=== PATIENT | female | born 1965 | race Caucasian/White ===

== ENCOUNTER 2016-07-18 10:34 | Emergency (ER) | payer OTHER ==
[2016-07-18 10:35] VITALS: BMI 41.5
[2016-07-18 10:52] VITALS: BP 110/72; PULSE 76; RESP 18; TEMP 98.2; O2SAT 98
--- NOTE | 2016-07-18 11:27 | C.PDOC ---
History Of Present Illness 51 yr old female with PMHx of multiple sclerosis, presents to the ER for a rash on top of her both feet for the past several days (also on right hand at the base of thumb). Patient states its occasionally itchy but currently it is not. She denies fever, injuries, new allergens (lotions, meds, shoes, detergents). Time Seen by Provider: 07/18/16 10:48 Chief Complaint (Nursing): Abnormal Skin Integrity History Per: Patient History/Exam Limitations: no limitations Onset/Duration Of Symptoms: Days (Several) Quality Of Symptoms: Itching Severity: Mild Past Medical History Reviewed: Historical Data, Nursing Documentation, Vital Signs Vital Signs: Last Vital Signs Temp 98.2 F 07/18/16 10:42 Pulse 76 07/18/16 10:42 Resp 18 07/18/16 10:42 BP 110/72 07/18/16 10:42 Pulse Ox 98 07/18/16 12:09 - Medical History PMH: Multiple Sclerosis (last episode 7-8 years) Family History: States: No Known Family Hx - Social History Hx Tobacco Use: No Hx Alcohol Use: No Hx Substance Use: No - Immunization History Hx Tetanus Toxoid Vaccination: No Hx Influenza Vaccination: No Hx Pneumococcal Vaccination: No Review Of Systems Except As Marked, All Systems Reviewed And Found Negative. Constitutional: Negative for: Fever, Chills Gastrointestinal: Negative for: Nausea Musculoskeletal: Negative for: Foot Pain Skin: Positive for: Rash (On top of both feet) Neurological: Negative for: Weakness, Numbness Physical Exam - Physical Exam Appears: Well, Non-toxic, No Acute Distress Skin: Normal Color, Warm, Dry Oral Mucosa: Moist Cardiovascular: Rhythm Regular Respiratory: Normal Breath Sounds, No Rales, No Rhonchi, No Wheezing Extremity: Normal ROM, No Calf Tenderness, Capillary Refill (< 2 sec all digits ), No Swelling, Other ((+) Multiple erythematous scaly papules on tops of B/L feet andone on the right thenar eminence. Blanching. Non vesicular. Spares the palms/soles. ) Pulses: Left Dorsalis Pedis: Normal, Right Dorsalis Pedis: Normal Neurological/Psych: Oriented x3 Gait: Steady ED Course And Treatment O2 Sat by Pulse Oximetry: 98 (RA) Pulse Ox Interpretation: Normal Progress Note: Patient given Rx for triamcinolone cream. She was instructed to follow up with her PMD in 1-2 days, and understands she should return to ED if symptoms worsen. Disposition Counseled Patient/Family Regarding: Diagnosis, Need For Followup, Rx Given - Disposition Referrals: Ender Pack MD [Medical Doctor] - Disposition: HOME/ ROUTINE Disposition Time: 11:25 Condition: STABLE Additional Instructions: FOLLOW UP WITH YOUR DOCTOR IN 1-2 DAYS USE MEDICATIONS DIRECTED RETURN TO ER IF SYMPTOMS WORSEN Prescriptions: Triamcinolone 0.1% [Triamcinolone Acetonide] 1 appl TP BID #1 tube Instructions: Dermatitis (ED), Eczema in Children (ED) Print Language: TONGAN - POA Present On Arrival: None - Clinical Impression Clinical Impression: Eczema - Scribe Statement The provider has reviewed the documentation as recorded by the Marlena Grove Provider Attestation: All medical record entries made by the Marlena were at my direction and personally dictated by me. I have reviewed the chart and agree that the record accurately reflects my personal performance of the history, physical exam, medical decision making, and the department course for this patient. I have also personally directed, reviewed, and agree with the discharge instructions and disposition.
== END 2016-07-18 11:39 | disposition home or self-care (01) ==
LOC: C.ER 10:34
DX: L30.9 Dermatitis, unspecified (principal); G35 Multiple sclerosis

== ENCOUNTER 2017-01-27 13:06 | Emergency (ER) | payer OTHER ==
[2017-01-27 13:07] VITALS: BMI 41.5
[2017-01-27 13:16] VITALS: RESP 18; TEMP 97.3
[2017-01-27] MEDS ORDERED: Lidocaine 5% Patch TD STA (13:31)
[2017-01-27] MEDS ORDERED: Lidocaine 5% Patch TD ONE (13:39)
--- NOTE | 2017-01-27 14:26 | C.PDOC ---
Time Seen by Provider: 01/27/17 13:21 Chief Complaint (Nursing): Upper Extremity Problem/Injury Past Medical History Vital Signs: Last Vital Signs Temp 97.3 F L 01/27/17 13:16 Pulse 75 01/27/17 13:16 Resp 18 01/27/17 13:16 BP 114/75 01/27/17 13:16 Pulse Ox 98 01/27/17 13:16 - Medical History PMH: Multiple Sclerosis (last episode 7-8 years) Denies: Chronic Kidney Disease Family History: States: Unknown Family Hx - Social History Hx Tobacco Use: No Hx Alcohol Use: No Hx Substance Use: No - Immunization History Hx Tetanus Toxoid Vaccination: No Hx Influenza Vaccination: No Hx Pneumococcal Vaccination: No ED Course And Treatment O2 Sat by Pulse Oximetry: 98 Disposition Counseled Patient/Family Regarding: Diagnosis, Need For Followup, Rx Given - Disposition Disposition: HOME/ ROUTINE Disposition Time: 14:24 Condition: STABLE Additional Instructions: Follow up with your regular doctor. Prescriptions: Ibuprofen [Motrin] 600 mg PO TID #15 tab Lidocaine 5% [Lidoderm] 1 ea TD DAILY #1 patch Instructions: Musculoskeletal Pain (ED) Forms: [facility] (Albanian), General Discharge Instructions - Clinical Impression Clinical Impression: Musculoskeletal pain of extremity
[2017-01-27 14:36] VITALS: BP 119/65; PULSE 71; O2SAT 99
== END 2017-01-27 14:46 | disposition home or self-care (01) ==
LOC: C.ER 13:06
DX: M79.601 Pain in right arm (principal); G35 Multiple sclerosis

== ENCOUNTER 2017-04-04 11:06 | Emergency (ER) | payer OTHER ==
[2017-04-04 11:07] VITALS: BMI 41.5
[2017-04-04 11:15] VITALS: RESP 16; TEMP 97.2; O2SAT 98
--- NOTE | 2017-04-04 11:46 | C.PDOC ---
Time Seen by Provider: 04/04/17 11:27 Chief Complaint (Nursing): Dizziness/Lightheaded Past Medical History Vital Signs: Last Vital Signs Temp 97.2 F L 04/04/17 11:11 Pulse 68 04/04/17 11:11 Resp 16 04/04/17 11:11 BP 111/73 04/04/17 11:11 Pulse Ox 98 04/04/17 11:11 - Medical History PMH: Multiple Sclerosis Denies: Chronic Kidney Disease Family History: States: Unknown Family Hx - Social History Hx Tobacco Use: No Hx Alcohol Use: No Hx Substance Use: No - Immunization History Hx Tetanus Toxoid Vaccination: No Hx Influenza Vaccination: No Hx Pneumococcal Vaccination: No ED Course And Treatment O2 Sat by Pulse Oximetry: 98 Disposition - Disposition
[2017-04-04] MEDS ORDERED: Lactated Ringer's 1,000 ML IV ONE (11:57)
[2017-04-04 12:29] LABS: BASO # 0.1 K/uL (0.0-0.2); BASO % 0.7 % (0.0-2.0); EOS # 0.1 K/uL (0.0-0.7); EOS % 1.1 % (0.0-4.0); HEMATOCRIT 35.9 % (34.0-47.0); LYMPH # 1.4 K/uL (1.0-4.3); MEAN CELL VOLUME 88.9 fL (81.0-99.0); MEAN CORPUSCULAR HEMOGLOBIN 30.8 pg (27.0-31.0); MEAN CORPUSCULAR HGB CONC 34.7 g/dL (33.0-37.0); MEAN PLATELET VOLUME 8.9 fL (7.2-11.7); MONO # 0.7 K/uL (0.0-0.8); MONO % 8.2 % (0.0-10.0); RED CELL DISTRIBUTION WIDTH 14.3 % (11.5-14.5); WHITE BLOOD COUNT 9.1 K/uL (4.8-10.8)
[2017-04-04 12:33] LABS: URINE BACTERIA RARE (<OCC); URINE BILIRUBIN NEGATIVE (NEGATIVE); URINE BLOOD 1+ (NEGATIVE); URINE COLOR Straw (YELLOW); URINE GLUCOSE (UA) NORMAL (Normal); URINE KETONE NEGATIVE (NEGATIVE); URINE LEUKOCYTE ESTERASE TRACE Leu/uL (Negative); URINE PROTEIN NEGATIVE (NEGATIVE); URINE UROBILINOGEN NORMAL mg/dL (0.2-1.0); WBC URINE 2 /hpf (0-5)
[2017-04-04 12:35] LABS: ALB/GLOB RATIO 1.2 (1.0-2.1); ALKALINE PHOSPHATASE 57 U/L (38-126); ALT/SGPT 27 U/L (9-52); AST/SGOT 18 U/L (14-36); BILIRUBIN,TOTAL 0.7 mg/dL (0.2-1.3); BLOOD UREA NITROGEN 9 mg/dL (7-17); CALCIUM 8.5 mg/dl (8.6-10.4); CARBON DIOXIDE 25 mmol/L (22-30); CHLORIDE 100 mmol/L (98-107); GFR AFRICAN-AMERICAN > 60; GLUCOSE,RANDOM 95 mg/dL (65-105); POTASSIUM 3.7 mmol/L (3.6-5.2); SODIUM 133 mmol/L (132-148); TOTAL PROTEIN 7.1 g/dL (6.3-8.3)
[2017-04-04] MEDS ORDERED: Lactated Ringer's 1,000 ML ONE (12:36)
[2017-04-04 12:42] LABS: RBC URINE 7 /hpf (0-3)
--- NOTE | 2017-04-04 12:59 | C.PDOC ---
History Of Present Illness 52 yr old female with PMhx of MS, presents to the ER for evaluation of intermittent "dizzy spells" since morning. Patient states , "when I started walking and felt spinning sensation, sat down and the sypmtoms resolved". Patient reports of similar symptoms in the past, which resolved with time. AT present time, pt denies any active complaints. Otherwise, pt denies head injury , fever, chills, severe headache, visual changes, focal deficits, neck pain, chest pain, SOB, dyspnea, diaphoresis, palpitation, abd. pain, nausea, vomiting , diarrhea, back pain. Ambulate to ED for evaluation, not in any apparent distress. Time Seen by Provider: 04/04/17 11:27 Chief Complaint (Nursing): Dizziness/Lightheaded History Per: Patient History/Exam Limitations: no limitations Onset/Duration Of Symptoms: Sudden Onset (Since morning) Past Medical History Reviewed: Historical Data, Nursing Documentation, Vital Signs Vital Signs: Last Vital Signs Temp 97.2 F L 04/04/17 11:11 Pulse 56 L 04/04/17 13:41 Resp 16 04/04/17 13:41 BP 141/82 04/04/17 13:41 Pulse Ox 98 04/04/17 13:41 - Medical History PMH: Multiple Sclerosis Family History: States: No Known Family Hx - Social History Hx Tobacco Use: No Hx Alcohol Use: No Hx Substance Use: No - Immunization History Hx Tetanus Toxoid Vaccination: No Hx Influenza Vaccination: No Hx Pneumococcal Vaccination: No Review Of Systems Except As Marked, All Systems Reviewed And Found Negative. Constitutional: Negative for: Fever Eyes: Negative for: Vision Change Cardiovascular: Negative for: Chest Pain Respiratory: Negative for: Shortness of Breath Gastrointestinal: Negative for: Nausea, Vomiting Neurological: Positive for: Dizziness. Negative for: Weakness, Numbness Physical Exam - Physical Exam Appears: Non-toxic, No Acute Distress Skin: Warm, Dry, No Rash Head: Normacephalic Eye(s): bilateral: PERRL Ear(s): Bilateral: Normal Nose: No Flaring, No Discharge Oral Mucosa: Moist, No Drooling Tongue: Normal Appearing Lips: Normal Appearing Throat: No Erythema, No Drooling Neck: Trachea Midline, Supple Cardiovascular: Rhythm Regular, No Murmur, No JVD, Other ((-) carotid bruits B/L ) Respiratory: No Decreased Breath Sounds, No Accessory Muscle Use, No Rales, No Rhonchi, No Stridor, No Wheezing Gastrointestinal/Abdominal: Soft, No Tenderness, No Distention, No Guarding Back: No CVA Tenderness Extremity: Normal ROM, No Pedal Edema, No Deformity, No Swelling Neurological/Psych: Oriented x3, Normal Speech, Cerebellar Signs, Normal Motor, Normal Sensation, Normal Reflexes ED Course And Treatment - Laboratory Results Result Diagrams: 04/04/17 12:18 04/04/17 12:18 Lab Interpretation: Normal ECG: Interpreted By Me, Viewed By Me ECG Rhythm: Sinus Bradycardia ECG Interpretation: No Changes From Prior (04/26/15) Interpretation Of ECG: Sinus mis@56/min, NAD, no acute T wave or ST-T changes. Rate From EC (BPM) O2 Sat by Pulse Oximetry: 98 (RA) Pulse Ox Interpretation: Normal Progress Note: On re-eval, pt is afberile, hemodynamicaly stable. NOn-toxic. AMbulatoyr in ED with stable gait. After ED tx, pt reports asymptomatic. PulsEOx 98% RA. ENT: No acute findings. Neck: SUpple, (-) JVD, (-) carotid bruits B/L. Lungs: CTA B/L, BS equal B/L. CVS: (+)S1S2, reg. ABd: Benign, (- ) guarding, (-) rebound, (-) localized tenderness. back: (-) CVA tenderness. Blood work review and appears normal. EKG- no acute abnormalities noted, read by ED attending. PT has clinical findings c/w dizziness, resolved. Hx of vertigo. Pt advised and ref. to F/u with PMD, Neuro In 2-3 days for re-eavl. return to ED if any worsening or new changes. Medical Decision Making Medical Decision Making: PLAN: * EKG * Troponin * CBC * CMP * HCG * Urinalysis * Lactated Ringer IV Disposition Counseled Patient/Family Regarding: Studies Performed, Diagnosis, Need For Followup - Disposition Referrals: Ender Pack MD [Medical Doctor] - Dwight Albarado MD [Staff Provider] - Disposition: HOME/ ROUTINE Disposition Time: 13:31 Condition: STABLE Additional Instructions: Follow up with PMD, Neurology in 2-3 days for re-evaluation. Return to ED if any worsening or new changes. Instructions: Dizziness (ED) Forms: [facility] (Guamanian) - Clinical Impression Clinical Impression: Dizziness - PA / BEACH ATTENDANT / Resident Statement MD/DO has reviewed & agrees with the documentation as recorded. - Scribe Statement The provider has reviewed the documentation as recorded by the Scribe Jessica Grove All medical record entries made by the Scribe were at my direction and personally dictated by me. I have reviewed the chart and agree that the record accurately reflects my personal performance of the history, physical exam, medical decision making, and the department course for this patient. I have also personally directed, reviewed, and agree with the discharge instructions and disposition.
[2017-04-04 13:41] VITALS: BP 141/82; PULSE 56
--- NOTE | 2017-04-07 12:11 | CARD ---
APPROVED REPORT EKG Measurement Heart [id number] <Conclusion> Sinus bradycardia Otherwise normal ECG
== END 2017-04-04 14:36 | disposition home or self-care (01) ==
LOC: C.ER 11:06
DX: R42 Dizziness and giddiness (principal); G35 Multiple sclerosis
CPT/HCPCS: 80053; 81001; 82948; 84484; 84703; 85025; 85610; 85730; 93005; 99285; J7120

== ENCOUNTER 2017-04-26 14:13 | Emergency (ER) | payer OTHER ==
[2017-04-26 14:14] VITALS: BMI 41.5
[2017-04-26 14:18] VITALS: BP 123/79; PULSE 77; RESP 20; TEMP 98.1; O2SAT 99
[2017-04-26 15:51] LABS: HCG,QUALITATIVE URINE NEGATIVE (NEGATIVE)
[2017-04-26 15:54] LABS: SQUAMOUS EPITHIAL 1 /hpf (0-5); URINE BACTERIA RARE (<OCC)
[2017-04-26 16:00] LABS: URINE BILIRUBIN NEGATIVE (NEGATIVE); URINE CLARITY CLEAR (Clear); URINE COLOR YELLOW (YELLOW)
[2017-04-26 16:01] LABS: URINE BLOOD NEGATIVE (NEGATIVE); URINE GLUCOSE (UA) NORMAL (Normal); URINE NITRATE NEGATIVE (NEGATIVE); URINE PROTEIN NEGATIVE (NEGATIVE); URINE UROBILINOGEN 0.2 mg/dL (0.2-1.0)
--- NOTE | 2017-04-26 16:18 | C.PDOC ---
History Of Present Illness 52-year-old female, presents to the emergency department with complaints of light menses this week. Patient states she was supposed to start her period a few days ago, but she is spotting and it is not as heavy as usual. Pt states she is usually regular though occassional has menses twice in one month. No h/o cysts or fibroids. Patient denies dysuria/frequency, pelvic pain, abdominal pain or any other associated symptoms. No other complaints at this time. Patient is wondering whether these are "age changes". Time Seen by Provider: 04/26/17 14:30 Chief Complaint (Nursing): Female Genitourinary History Per: Patient History/Exam Limitations: no limitations Onset/Duration Of Symptoms: Days Current Symptoms Are (Timing): Still Present Past Medical History Reviewed: Historical Data, Nursing Documentation, Vital Signs Vital Signs: Last Vital Signs Temp 98.1 F 04/26/17 14:15 Pulse 77 04/26/17 14:15 Resp 20 04/26/17 16:29 BP 123/79 04/26/17 14:15 Pulse Ox 99 04/26/17 16:42 - Medical History PMH: Multiple Sclerosis Family History: States: No Known Family Hx - Social History Hx Tobacco Use: No Hx Alcohol Use: No Hx Substance Use: No - Immunization History Hx Tetanus Toxoid Vaccination: No Hx Influenza Vaccination: No Hx Pneumococcal Vaccination: No Review Of Systems Except As Marked, All Systems Reviewed And Found Negative. Constitutional: Negative for: Fever Respiratory: Negative for: Shortness of Breath Gastrointestinal: Negative for: Vomiting Genitourinary: Positive for: Vaginal Bleeding. Negative for: Pelvic Pain Physical Exam - Physical Exam Appears: Non-toxic, No Acute Distress Skin: Warm, Dry, No Rash Head: Atraumatic, Normacephalic Eye(s): bilateral: Normal Inspection, EOMI Nose: Normal Oral Mucosa: Moist Lips: Normal Appearing Neck: Normal ROM, Supple Chest: Symmetrical Cardiovascular: Rhythm Regular Respiratory: Normal Breath Sounds, No Accessory Muscle Use Gastrointestinal/Abdominal: Soft, No Tenderness Extremity: Normal ROM Neurological/Psych: Oriented x3, Normal Speech ED Course And Treatment O2 Sat by Pulse Oximetry: 99 Progress Note: UA/Preg ordered and reviewed. Patient advised to f/u with OBGYN in 1-2 days. Disposition - Disposition Disposition: HOME/ ROUTINE Disposition Time: 16:17 Condition: STABLE Additional Instructions: Follow up with your [employer]ER[employer] DRIVER in 1-2 days. Instructions: Menopause (ED) Forms: [employer] [facility] [employer] [facility] (Yemeni) - Clinical Impression Clinical Impression: Irregular menstruation - Scribe Statement The provider has reviewed the documentation as recorded by the Scribe (Maurilio Moya) All medical record entries made by the Scribe were at my direction and personally dictated by me. I have reviewed the chart and agree that the record accurately reflects my personal performance of the history, physical exam, medical decision making, and the department course for this patient. I have also personally directed, reviewed, and agree with the discharge instructions and disposition.
[2017-04-26 17:31] LABS: URINE LEUKOCYTE ESTERASE NEGATIVE Leu/uL (Negative)
== END 2017-04-26 16:29 | disposition home or self-care (01) ==
LOC: C.ER 14:13
DX: N92.6 Irregular menstruation, unspecified (principal); G35 Multiple sclerosis

== ENCOUNTER 2017-06-13 10:06 | Emergency (ER) | payer OTHER ==
[2017-06-13 10:12] VITALS: BMI 33.6
[2017-06-13] MEDS ORDERED: Naproxen 550 mg Tab PO STA (10:35)
[2017-06-13] MEDS ORDERED: Naproxen 550 mg Tab PO ONE (10:53)
--- NOTE | 2017-06-13 10:55 | RAD ---
PROCEDURE: Right Knee Radiographs. HISTORY: Pain COMPARISON: None. FINDINGS: BONES: No acute fracture. JOINTS: Unremarkable. JOINT EFFUSION: None. OTHER FINDINGS: None. IMPRESSION: No demonstrated fracture or dislocation.
--- NOTE | 2017-06-13 11:22 | C.PDOC ---
History Of Present Illness Pt c/o right medial anterior knee pain. Denies injury but states that she has been exercising a lot lately. Time Seen by Provider: 06/13/17 10:27 Chief Complaint (Nursing): Lower Extremity Problem/Injury History Per: Patient Onset/Duration Of Symptoms: Days, Gradual Current Symptoms Are (Timing): Worse Severity: Moderate Additional History Per: Prior Records Past Medical History Reviewed: Historical Data, Nursing Documentation, Vital Signs Vital Signs: Last Vital Signs Temp 97.5 F L 06/13/17 10:14 Pulse 68 06/13/17 10:14 Resp 18 06/13/17 10:14 BP 121/74 06/13/17 10:14 Pulse Ox 100 06/13/17 10:14 - Medical History PMH: Multiple Sclerosis Family History: States: Unknown Family Hx - Social History Hx Tobacco Use: No Hx Alcohol Use: No Hx Substance Use: No - Immunization History Hx Tetanus Toxoid Vaccination: No Hx Influenza Vaccination: No Hx Pneumococcal Vaccination: No Review Of Systems Except As Marked, All Systems Reviewed And Found Negative. Constitutional: Negative for: Fever, Weakness Cardiovascular: Negative for: Chest Pain Respiratory: Negative for: Shortness of Breath Gastrointestinal: Negative for: Vomiting, Abdominal Pain Musculoskeletal: Negative for: Neck Pain, Back Pain, Foot Pain Skin: Negative for: Rash Neurological: Negative for: Weakness, Numbness Physical Exam - Physical Exam Appears: Non-toxic, No Acute Distress Skin: Normal Color, Warm, Dry, No Rash Head: Atraumatic, Normacephalic Eye(s): bilateral: Normal Inspection, PERRL, EOMI Neck: Normal ROM, Supple Extremity: Normal ROM, Tenderness (soft tissue of the medial aspect of right anterior knee), No Pedal Edema, No Calf Tenderness, No Deformity, No Swelling Extremity: Bilateral: Normal Color And Temperature Neurological/Psych: Oriented x3, Normal Motor, Normal Sensation ED Course And Treatment O2 Sat by Pulse Oximetry: 100 Pulse Ox Interpretation: Normal - Other Rad Right knee X-rays X-Ray: Viewed By Me, Read By Radiologist Interpretation: IMPRESSION: No demonstrated fracture or dislocation. Reassessment Condition: Improved Disposition Counseled Patient/Family Regarding: Studies Performed, Diagnosis, Need For Followup, Rx Given - Disposition Referrals: Ender Pack MD [Medical Doctor] - Ayaan Villagran III, MD [Staff Provider] - Disposition: HOME/ ROUTINE Disposition Time: 11:23 Condition: STABLE Additional Instructions: Rest right leg. Follow up with an orthopedic doctor for further evaluation and treatment. Return to the ER if you develop redness, swelling, worsening of symptoms or if you have any other concerns. Prescriptions: Naproxen [Naprosyn] 1 tab PO BID PRN #20 tab PRN Reason: Pain Instructions: Knee Pain (DC) - Clinical Impression Clinical Impression: Right knee pain
[2017-06-13 11:35] VITALS: BP 109/65; PULSE 69; RESP 16; TEMP 98.5; O2SAT 99
== END 2017-06-13 11:33 | disposition home or self-care (01) ==
LOC: C.ER 10:06
DX: M25.561 Pain in right knee (principal)

== ENCOUNTER 2017-07-21 09:16 | Emergency (ER) | payer OTHER ==
[2017-07-21 09:22] VITALS: BMI 26.5
[2017-07-21 09:24] VITALS: RESP 18; O2SAT 99
[2017-07-21] MEDS ORDERED: Sodium Chloride 0.9% 1,000 ML IV STA (10:23)
--- NOTE | 2017-07-21 10:49 | C.PDOC ---
History Of Present Illness 52yo female with history of multiple sclerosis, presents to the ER with complaints of dizziness and light headedness for the past 6 days. Patient describes the dizziness as "room spinning" and states the episodes are intermittent, lasting for a couple seconds at a time. She states it does seem to occur with changes in position. She also denies any vision changes, falls, trauma, head injury. Patient denies any known sick contacts, diarrhea, leg pain , calf pain, recent surgery or long periods of immobilization. She has no other medical complaints. Time Seen by Provider: 07/21/17 09:50 Chief Complaint (Nursing): Dizziness/Lightheaded History Per: Patient History/Exam Limitations: no limitations Onset/Duration Of Symptoms: Days Current Symptoms Are (Timing): Still Present Fall Associated With With Symptoms: No Past Medical History Reviewed: Historical Data, Nursing Documentation, Vital Signs Vital Signs: Last Vital Signs Temp 97.3 F L 07/21/17 09:23 Pulse 69 07/21/17 09:23 Resp 18 07/21/17 09:23 BP 135/83 07/21/17 09:23 Pulse Ox 99 07/21/17 11:27 - Medical History PMH: Multiple Sclerosis Denies: Chronic Kidney Disease Surgical History: No Surg Hx Family History: States: Unknown Family Hx - Social History Hx Tobacco Use: No Hx Alcohol Use: No Hx Substance Use: No - Immunization History Hx Tetanus Toxoid Vaccination: No Hx Influenza Vaccination: No Hx Pneumococcal Vaccination: No Review Of Systems Except As Marked, All Systems Reviewed And Found Negative. Eyes: Negative for: Vision Change Musculoskeletal: Negative for: Leg Pain Physical Exam - Physical Exam Additional Physical Exam Comments: Constitutional: No acute distress. Head: Normocephalic. Atraumatic. Eyes: PERRL. ENT: Moist mucous membranes. TM's normal bilaterally. Neck: Supple. Cardiovascular: Regular rate. Radial pulse 2+ bilaterally. Chest: No tenderness. Respiratory: Clear to auscultation bilaterally. GI: Soft. Nontender. Nondistended. Back: No CVA tenderness. Musculoskeletal: No tenderness or swelling of extremities. Skin: No rash. Neurologic: Oriented x 3. Cranial nerves II-XII intact. Sensation to light touch intact bilaterally. Motor 5/5 x 4. Gait normal. Romberg negative. Finger to nose, heel to foster, and rapid alternating movements normal. ED Course And Treatment - Laboratory Results Result Diagrams: 07/21/17 10:48 07/21/17 10:48 O2 Sat by Pulse Oximetry: 99 (RA) Pulse Ox Interpretation: Normal Medical Decision Making Medical Decision Making: Impression: BPPV Plan: -- CMP -- CBC -- EKG -- Urinalysis -- Urine culture -- Meclizine 20mg PO -- IV Fluids 1024 EKG: Normal sinus rhythm [address]/T changes Patient in no distress. No further symptom episodes in ED. Will discharge, f/u ENT, return to ED for worsening pain, vertigo, syncope/nearsyncope, chest pain, dyspnea, or any other problem. Disposition - Disposition Referrals: Edwardo Nguyen MD [Staff Provider] - Disposition: HOME/ ROUTINE Disposition Time: 11:28 Condition: STABLE Prescriptions: Meclizine [Antivert] 25 mg PO TID PRN #20 tab PRN Reason: Dizziness Instructions: Vertigo (a Type of Dizziness) (DC) Forms: [email or web address] (Kenyan) - Clinical Impression Clinical Impression: Vertigo - Scribe Statement The provider has reviewed the documentation as recorded by the Scribe (Jasmine Hare) Provider Attestation: All medical record entries made by the Scribe were at my direction and personally dictated by me. I have reviewed the chart and agree that the record accurately reflects my personal performance of the history, physical exam, medical decision making, and the department course for this patient. I have also personally directed, reviewed, and agree with the discharge instructions and disposition.
[2017-07-21] MEDS ORDERED: Sodium Chloride 0.9% 1,000 ML ONE (10:52)
[2017-07-21 10:57] LABS: BASO # 0.1 K/uL (0.0-0.2); BASO % 0.7 % (0.0-2.0); EOS # 0.1 K/uL (0.0-0.7); EOS % 1.3 % (0.0-4.0); HEMOGLOBIN 12.7 g/dL (11.0-16.0); LYMPH # 1.2 K/uL (1.0-4.3); LYMPH % 13.6 % (20.0-40.0); MEAN CELL VOLUME 89.2 fL (81.0-99.0); MEAN CORPUSCULAR HEMOGLOBIN 30.5 pg (27.0-31.0); MEAN CORPUSCULAR HGB CONC 34.2 g/dL (33.0-37.0); MEAN PLATELET VOLUME 9.2 fL (7.2-11.7); MONO # 0.6 K/uL (0.0-0.8); MONO % 6.7 % (0.0-10.0); NEUT # 6.7 K/uL (1.8-7.0); NEUT % 77.7 % (50.0-75.0); RBC 4.17 Mil/uL (3.80-5.20); RED CELL DISTRIBUTION WIDTH 15.1 % (11.5-14.5); WHITE BLOOD COUNT 8.6 K/uL (4.8-10.8)
[2017-07-21 11:03] LABS: SQUAMOUS EPITHIAL < 1 /hpf (0-5); URINE BILIRUBIN NEGATIVE (NEGATIVE); URINE BLOOD NEGATIVE (NEGATIVE); URINE CLARITY Clear (Clear); URINE COLOR Colorless (YELLOW); URINE GLUCOSE (UA) NORMAL (Normal); URINE LEUKOCYTE ESTERASE 1+ Leu/uL (Negative); URINE PROTEIN NEGATIVE (NEGATIVE); URINE UROBILINOGEN NORMAL mg/dL (0.2-1.0)
[2017-07-21 11:18] LABS: ALBUMIN 3.9 g/dL (3.5-5.0); ALT/SGPT 18 U/L (9-52); AST/SGOT 26 U/L (14-36); BLOOD UREA NITROGEN 10 mg/dL (7-17); GFR AFRICAN-AMERICAN > 60; GFR NON-AFRICAN AMERICAN > 60
[2017-07-21 11:46] VITALS: BP 139/78; PULSE 74; TEMP 97.9
--- NOTE | 2017-07-21 23:43 | CARD ---
APPROVED REPORT EKG Measurement Heart [id number] <Conclusion> Sinus bradycardia Otherwise normal ECG
== END 2017-07-21 11:45 | disposition home or self-care (01) ==
LOC: C.ER 09:16
DX: R42 Dizziness and giddiness (principal)
CPT/HCPCS: 80053; 81001; 82948; 85025; 87086; 93005; 96360; 99285; J7040

== ENCOUNTER 2017-07-27 13:48 | Emergency (ER) | payer OTHER ==
[2017-07-27 13:48] VITALS: BMI 26.5
[2017-07-27 14:00] VITALS: BP 102/69; PULSE 77; RESP 20; TEMP 97.7; O2SAT 99
--- NOTE | 2017-07-27 14:41 | C.PDOC ---
History Of Present Illness 52 y/o female with history of MS on Tecfidera presents to ED with complaints of non improving abrasion to 3rd right digit sustained 2 weeks ago while putting on corset. Patient states she has been putting Peroxide to area and keeping it clean but pain continues. Patient denie snew injury, numbness, fever, chills or any other complaints at this time. Time Seen by Provider: 07/27/17 14:18 Chief Complaint (Nursing): Wound Check History Per: Patient History/Exam Limitations: no limitations Onset/Duration Of Symptoms: Days Ago Current Symptoms Are (Timing): Still Present Past Medical History Reviewed: Historical Data, Nursing Documentation, Vital Signs Vital Signs: Last Vital Signs Temp 97.7 F 07/27/17 13:58 Pulse 77 07/27/17 13:58 Resp 20 07/27/17 14:54 BP 102/69 07/27/17 13:58 Pulse Ox 99 07/27/17 16:16 - Medical History PMH: Multiple Sclerosis Surgical History: No Surg Hx Family History: States: No Known Family Hx - Social History Hx Tobacco Use: No Hx Alcohol Use: No Hx Substance Use: No - Immunization History Hx Tetanus Toxoid Vaccination: No Hx Influenza Vaccination: No Hx Pneumococcal Vaccination: No Review Of Systems Except As Marked, All Systems Reviewed And Found Negative. Constitutional: Negative for: Fever, Chills Musculoskeletal: Positive for: Hand Pain Skin: Negative for: Rash Neurological: Negative for: Numbness Physical Exam - Physical Exam Appears: Non-toxic, No Acute Distress Skin: Warm, Dry, No Rash Head: Atraumatic, Normacephalic Eye(s): bilateral: Normal Inspection Oral Mucosa: Moist Extremity: Capillary Refill (<2 seconds), No Deformity, Other (right 3rd DIP joint 1cm area of darken skin mildly erythematous w/central healing superficial lac) Extremity: Bilateral: Normal ROM Neurological/Psych: Oriented x3, Normal Speech, Normal Cognition ED Course And Treatment O2 Sat by Pulse Oximetry: 99 (RA) Pulse Ox Interpretation: Normal Progress Note: Keflex and Bacitracin administered. Patient d/c with advised f.u with PMD Disposition Counseled Patient/Family Regarding: Diagnosis, Need For Followup, Rx Given - Disposition Referrals: [facility] [Outside] Disposition: HOME/ ROUTINE Disposition Time: 14:45 Condition: STABLE Additional Instructions: FOLLOW UP WITH YOUR DOCTOR/CLINIC IN 1-2 DAYS USE MEDICATIONS DIRECTED RETURN TO ER IF SYMPTOMS WORSEN Prescriptions: Bacitracin OINT 1 applic TOP BID #1 tube Cephalexin [Keflex] 500 mg PO BID #14 capsule Instructions: Wound Care (DC) Forms: [employer] (Italian) Print Language: HONDURAN - Clinical Impression Clinical Impression: Non-healing wound, Cellulitis of finger - Scribe Statement The provider has reviewed the documentation as recorded by the Marlena Ferris All medical record entries made by the Marlena were at my direction and personally dictated by me. I have reviewed the chart and agree that the record accurately reflects my personal performance of the history, physical exam, medical decision making, and the department course for this patient. I have also personally directed, reviewed, and agree with the discharge instructions and disposition.
[2017-07-27] MEDS ORDERED: Bacitracin 500 Units/gm Oint Foilpak UD TOP ONE (14:42)
[2017-07-27] MEDS ORDERED: Bacitracin 500 Units/gm Oint Foilpak UD ONE (14:51)
== END 2017-07-27 14:54 | disposition home or self-care (01) ==
LOC: C.ER 13:48
DX: S61.212A Laceration without foreign body of right middle finger without damage to nail, initial encounter (principal); L03.011 Cellulitis of right finger; X58.XXXA Exposure to other specified factors, initial encounter

== ENCOUNTER 2018-01-21 16:45 | Emergency (ER) | payer OTHER ==
[2018-01-21 16:45] VITALS: BMI 26.5
[2018-01-21 16:51] VITALS: O2SAT 99
[2018-01-21 17:55] VITALS: BP 110/67; PULSE 68; RESP 18; TEMP 98.6
--- NOTE | 2018-01-21 17:58 | C.PDOC ---
History Of Present Illness 52 y/o female, w/no significant PMhx, presents to the ER complaining of rash x 1 day. Around noon, patient noticed redness and itching to chest, left lower back, bilateral arms, and bilateral thighs. Pt applied ice which relieved most of the redness. This has never occurred before. No known allergies. She did not take any medications for her symptoms. Denies using new detergents and new foods, difficulty breathing, facial or lip swelling, throat swelling, difficulty swallowing, wheezing, cough, headache, fever, and chills. <Nazia Bowen - Last Filed: 01/21/18 21:13> History Per: Patient History/Exam Limitations: no limitations Onset/Duration Of Symptoms: Days Current Symptoms Are (Timing): Still Present Severity: Moderate <Nazia Bowen - Last Filed: 01/21/18 21:13> <John Lane - Last Filed: 01/25/18 21:32> Chief Complaint (Nursing): Abnormal Skin Integrity Past Medical History Reviewed: Historical Data, Nursing Documentation, Vital Signs Vital Signs: Last Vital Signs Temp 98.2 F 01/21/18 16:49 Pulse 77 01/21/18 16:49 Resp 20 01/21/18 16:49 BP 110/75 01/21/18 16:49 Pulse Ox 99 01/21/18 16:49 - Medical History PMH: Multiple Sclerosis Denies: Chronic Kidney Disease Other Surgeries: Hx of surgeries Family History: States: No Known Family Hx - Social History Hx Tobacco Use: No Hx Alcohol Use: No Hx Substance Use: No - Immunization History Hx Tetanus Toxoid Vaccination: No Hx Influenza Vaccination: No Hx Pneumococcal Vaccination: No <Nazia Bowen - Last Filed: 01/21/18 21:13> Vital Signs: Last Vital Signs Temp 98.6 F 01/21/18 17:54 Pulse 68 01/21/18 17:54 Resp 18 01/21/18 17:54 BP 110/67 01/21/18 17:54 Pulse Ox 99 01/21/18 21:20 <[address] - Last Filed: 01/25/18 21:32> Review Of Systems Except As Marked, All Systems Reviewed And Found Negative. Constitutional: Negative for: Fever, Chills Eyes: Negative for: Vision Change ENT: Negative for: Mouth Swelling, Throat Pain, Throat Swelling Cardiovascular: Negative for: Chest Pain, Palpitations Respiratory: Negative for: Cough, Shortness of Breath Gastrointestinal: Negative for: Nausea, Vomiting, Abdominal Pain, Diarrhea Musculoskeletal: Negative for: Neck Pain, Shoulder Pain, Arm Pain, Back Pain, Hand Pain, Leg Pain, Foot Pain Skin: Positive for: Rash (chest, lower back, bilatearl thighs, bilateral arms) Neurological: Negative for: Weakness, Numbness, Headache, Dizziness <Nazia Bowen - Last Filed: 01/21/18 21:13> Physical Exam - Physical Exam Appears: Non-toxic, No Acute Distress Skin: Normal Color, Warm, Dry Head: Atraumatic, Normacephalic Eye(s): bilateral: Normal Inspection, PERRL, EOMI Ear(s): Bilateral: Normal Nose: Normal Oral Mucosa: Moist Tongue: Normal Appearing, No Swelling Lips: Normal Appearing, No Swelling Gingiva: Normal Appearing, No Swelling Throat: Normal, No Erythema, No Exudate Neck: Normal, Trachea Midline, Supple Lymphatic: Normal Exam Chest: Symmetrical, No Deformity, No Tenderness, No Ecchymosis, No Subcutaneous Emphysema, Other (erythema and urticaria to anterior chest) Cardiovascular: Rhythm Regular Respiratory: Normal Breath Sounds, No Decreased Breath Sounds, No Accessory Muscle Use, No Rales, No Rhonchi, No Wheezing Gastrointestinal/Abdominal: Normal Exam, Bowel Sounds, Soft, No Tenderness Back: No Vertebral Tenderness, No Muscle Spasm, No Paraspinal Tenderness, Other (mild erythema and urticaria to the left lower back) Extremity: Normal ROM, No Tenderness Pulses: Left Radial: Normal, Right Radial: Normal Neurological/Psych: Oriented x3, Normal Speech <Nazia Bowen - Last Filed: 01/21/18 21:13> ED Course And Treatment O2 Sat by Pulse Oximetry: 99 (RA) Pulse Ox Interpretation: Normal <Nazia Bowen - Last Filed: 01/21/18 21:13> Medical Decision Making Medical Decision Making: Initial Plan: --Benadryl PO --Pepcid PO --Prednisone PO Pt reassessed, pt feels better, comfortable with discharge home. Pt has house doctor visiting her tomorrow. Advised to have them evaluate her symptoms in the morning. Advised pt to return if throat swelling, difficulty breathing. Impression: Urticaria Plan: Benadryl 50mg q6h as needed Prednisone 40mg daily x 4 days Increase fluids Followup with primary doctor Return if worse <Nazia Bowen - Last Filed: 01/21/18 21:13> Disposition - Disposition Disposition Time: 18:30 <Nazia Bowen - Last Filed: 01/21/18 21:13> <John Lane - Last Filed: 01/25/18 21:32> - Disposition Referrals: 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 - Scribe Statement The provider has reviewed the documentation as recorded by the Marlena Gomez Provider Attestation All medical record entries made by the Yobaniibe were at my direction and personally dictated by me. I have reviewed the chart and agree that the record accurately reflects my personal performance of the history, physical exam, medical decision making, and the department course for this patient. I have also personally directed, reviewed, and agree with the discharge instructions and disposition. <Nazia Bowen - Last Filed: 01/21/18 21:13>
== END 2018-01-21 19:05 | disposition home or self-care (01) ==
LOC: C.ER 16:45
DX: L50.9 Urticaria, unspecified (principal)

== ENCOUNTER 2018-04-25 08:44 | Emergency (ER) | payer OTHER ==
[2018-04-25 08:45] VITALS: BMI 26.5
[2018-04-25 08:57] VITALS: BP 129/84; PULSE 74; TEMP 97.9; O2SAT 98
--- NOTE | 2018-04-25 09:30 | C.PDOC ---
History Of Present Illness 53 year old female presents to the emergency department with complaints of left lower gum irritation which started this morning. Patient states that she noticed tenderness when she was brushing her teeth. Patient denies trauma, injury, or other complaints. Chief Complaint (Nursing): Dental Pain History Per: Patient History/Exam Limitations: no limitations Onset/Duration Of Symptoms: Hrs Current Symptoms Are (Timing): Still Present Quality: Positive for: "Pain" Past Medical History Reviewed: Historical Data, Nursing Documentation, Vital Signs Vital Signs: Last Vital Signs Temp 97.9 F 04/25/18 08:56 Pulse 74 04/25/18 08:56 Resp 20 04/25/18 08:56 BP 129/84 04/25/18 08:56 Pulse Ox 98 04/25/18 08:56 - Medical History PMH: Multiple Sclerosis Denies: Chronic Kidney Disease Surgical History: No Surg Hx Family History: States: No Known Family Hx - Social History Hx Tobacco Use: No Hx Alcohol Use: No Hx Substance Use: No - Immunization History Hx Tetanus Toxoid Vaccination: No Hx Influenza Vaccination: No Hx Pneumococcal Vaccination: No Review Of Systems Except As Marked, All Systems Reviewed And Found Negative. ENT: Positive for: Other (gum irritation) Physical Exam - Physical Exam Appears: Non-toxic, No Acute Distress Skin: Normal Color, Warm, Dry Head: Atraumatic, Normacephalic Eye(s): bilateral: Normal Inspection, PERRL, EOMI Nose: Normal Oral Mucosa: Moist Gingiva: Ulceration (to the left lower gingival area), No Other (cellulitic process) Throat: Normal, No Erythema, No Exudate Neck: Normal, Supple Neurological/Psych: Oriented x3, Normal Speech, Normal Cognition ED Course And Treatment O2 Sat by Pulse Oximetry: 98 (RA) Pulse Ox Interpretation: Normal Medical Decision Making Medical Decision Making: Assessment: Aphthous ulcer. Stomatitis. Disposition Counseled Patient/Family Regarding: Studies Performed, Diagnosis - Disposition Referrals: Ender Pack MD [Medical Doctor] - Disposition: HOME/ ROUTINE Disposition Time: 09:28 Condition: STABLE Additional Instructions: follow up with your doctor within 2 days call to make an appointment take medications as prescribed return to ER if symptoms worsens or progress Prescriptions: Mag&Al/Simet/Diphen/Lido [First Magic Mouthwash] 1 ml PO TID PRN #1 kit PRN Reason: Pain, Mild (1-3) Instructions: Mouth Sores (DC) Forms: [facility] (Scottish), General Discharge Instructions - Clinical Impression Clinical Impression: Aphthous ulcer, Stomatitis - Scribe Statement The provider has reviewed the documentation as recorded by the Scribe (Javon Hanson) Provider Attestation: All medical record entries made by the Scribe were at my direction and personally dictated by me. I have reviewed the chart and agree that the record accurately reflects my personal performance of the history, physical exam, medical decision making, and the department course for this patient. I have also personally directed, reviewed, and agree with the discharge instructions and disposition.
[2018-04-25 09:46] VITALS: RESP 18
== END 2018-04-25 09:45 | disposition home or self-care (01) ==
LOC: C.ER 08:44
DX: K12.0 Recurrent oral aphthae (principal)